=== PATIENT | male | born 1980 | race Caucasian/White ===

== ENCOUNTER 2019-01-27 19:42 | Emergency (ER) | payer OTHER ==
[2019-01-27] MEDS ORDERED: Ondansetron 4 MG/2 ML SDV IVPUSH ONE (20:22)
[2019-01-27] MEDS ORDERED: Ketorolac 30 MG/ML SDV IVPUSH ONE (20:22)
[2019-01-27] MEDS ORDERED: Sodium Chloride 0.9% 1,000 ML IV ONE (20:22)
--- NOTE | 2019-01-27 20:23 | EDM.PDOC ---
ED HPI GENERAL MEDICAL PROBLEM - General Chief Complaint: Abdominal Pain Stated Complaint: BACK PAIN Time Seen by Provider: 01/27/19 20:23 Source of Information: Reports: Patient - History of Present Illness INITIAL COMMENTS - FREE TEXT/NARRATIVE: HISTORY AND PHYSICAL: History of present illness: [Patient presents with mild. 10 low back pain persistent over the last 3 weeks nonradiating no footdrop saddle anesthesia or bowel or urine symptoms, begin of her left after lifting heavy object at work. He is able to bend and touch his toes and moves freely on and off the exam table Secondary complaint of abdominal pain is also mild 3-5 out of 10 on his pain scale no fever nausea vomiting chills sweats states that he has bloated sensation in the mornings on awakening has mild diffuse tenderness on exam no guarding or rebound] Review of systems: As per history of present illness and below otherwise all systems reviewed and negative. Past medical history: As per history of present illness and as reviewed below otherwise noncontributory. Surgical history: As per history of present illness and as reviewed below otherwise noncontributory. Social history: No reported history of drug or alcohol abuse. Family history: As per history of present illness and as reviewed below otherwise noncontributory. Physical exam: HEENT: Atraumatic, normocephalic, pupils reactive, negative for conjunctival pallor or scleral icterus, mucous membranes moist, throat clear, neck supple, nontender, trachea midline. Lungs: Clear to auscultation, breath sounds equal bilaterally, chest nontender. Heart: S1S2, regular, negative for clicks, rubs, or JVD. Abdomen: Soft, nondistended, mild tenderness on deep palpation diffusely. Negative for masses or hepatosplenomegaly. Negative for costovertebral tenderness. Pelvis: Stable nontender. Genitourinary: Deferred. Rectal: Deferred. Extremities: Atraumatic, negative for cords or calf pain. Neurovascular unremarkable. Neuro: Awake, alert, oriented. Cranial nerves II through XII unremarkable. Cerebellum unremarkable. Motor and sensory unremarkable throughout. Exam nonfocal. Diagnostics: [CBC CMP UA lipase CT abdomen pelvis no contrast] Therapeutics: [Cipro 500 by mouth twice a day #20 no refill Rest ice ibuprofen] Impression: [Abdominal pain, mesenteric adenitis] Lumbar paraspinous muscle spasm Definitive disposition and diagnosis as appropriate pending reevaluation and review of above. abdomen/lower back Pain Score (Numeric/FACES): 8 - Related Data Allergies Allergy/AdvReac Type Severity Reaction Status Date / Time No Known Allergies Allergy Verified 01/27/19 20:13 Home Meds: Home Meds . [No Known Home Meds] 01/27/19 [History] Past Medical History HEENT History: Reports: None Cardiovascular History: Reports: None Respiratory History: Reports: None Gastrointestinal History: Reports: Hemorrhoids Musculoskeletal History: Reports: None Neurological History: Reports: None Psychiatric History: Reports: None Endocrine/Metabolic History: Reports: None Hematologic History: Reports: None Immunologic History: Reports: None Oncologic (Cancer) History: Reports: None Dermatologic History: Reports: None - Infectious Disease History Infectious Disease History: Reports: None - Past Surgical History Head Surgeries/Procedures: Reports: None Other GI Surgeries/Procedures: hemorrhoidectomy Musculoskeletal Surgical History: Reports: Other (See Below) Other Musculoskeletal Surgeries/Procedures:: ACL repair. 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 Social & Family History - Family History Family Medical History: Noncontributory - Tobacco Use Smoking Status *Q: Current Every Day Smoker Years of Tobacco use: 18 Packs/Tins Daily: 0.5 - Caffeine Use Caffeine Use: Reports: Soda - Recreational Drug Use Recreational Drug Use: No ED ROS GENERAL - Review of Systems Review Of Systems: See Below ED EXAM, GENERAL - Physical Exam Exam: See Below Course - Vital Signs Last Recorded V/S: Last Vital Signs Temp 98 F 01/27/19 20:13 Pulse 86 01/27/19 20:13 Resp 18 01/27/19 20:13 BP 131/84 01/27/19 20:13 Pulse Ox 100 01/27/19 20:13 - Orders/Labs/Meds Labs: Laboratory Tests 01/27/19 01/27/19 01/27/19 Range/Units 20:26 20:32 20:32 WBC 10.10 (4.0-11.0) K/uL RBC 5.62 (4.50-5.90) M/uL Hgb 15.7 (13.0-17.0) g/dL Hct 47.0 (38.0-50.0) % MCV 83.6 (80.0-98.0) fL MCH 27.9 (27.0-32.0) pg MCHC 33.4 (31.0-37.0) g/dL RDW Std Deviation 44.4 (28.0-62.0) fl RDW Coeff of Anita 15 (11.0-15.0) % Plt Count 200 (150-400) K/uL MPV 11.50 (7.40-12.00) fL Neut % (Auto) 69.2 (48.0-80.0) % Lymph % (Auto) 21.7 (16.0-40.0) % Johnson % (Auto) 7.0 (0.0-15.0) % Eos % (Auto) 1.9 (0.0-7.0) % Baso % (Auto) 0.2 (0.0-1.5) % Neut # (Auto) 7.0 H (1.4-5.7) K/uL Lymph # (Auto) 2.2 (0.6-2.4) K/uL Johnson # (Auto) 0.7 (0.0-0.8) K/uL Eos # (Auto) 0.2 (0.0-0.7) K/uL Baso # (Auto) 0.0 (0.0-0.1) K/uL Nucleated RBC % 0.0 /100WBC Nucleated RBCs # 0 K/uL Sodium 141 (136-148) mmol/L Potassium 4.4 (3.5-5.1) mmol/L Chloride 105 (98-107) mmol/L Carbon Dioxide 26.0 (21.0-32.0) mmol/L BUN 22 H (7.0-18.0) mg/dL Creatinine 1.0 (0.8-1.3) mg/dL Est Cr Clr Drug Dosing 115.41 mL/min Estimated GFR (MDRD) > 60.0 ml/min Glucose 91 (74-106) mg/dL Calcium 8.5 (8.5-10.1) mg/dL Total Bilirubin 0.2 (0.2-1.0) mg/dL AST 13 L (15-37) IU/L ALT 27 (14-63) IU/L Alkaline Phosphatase 123 H (46-116) U/L Troponin I < 0.050 (0.000-0.056) ng/mL Total Protein 7.4 (6.4-8.2) g/dL Albumin 3.9 (3.4-5.0) g/dL Globulin 3.5 (2.6-4.0) g/dL Albumin/Globulin Ratio 1.1 (0.9-1.6) Lipase 99 (73-393) U/L Urine Color YELLOW Urine Appearance CLEAR Urine pH 6.0 (5.0-8.0) Ur Specific [place] 1.025 (1.001-1.035) Urine Protein NEGATIVE (NEGATIVE) mg/dL Urine Glucose (UA) NEGATIVE (NEGATIVE) mg/dL Urine Ketones NEGATIVE (NEGATIVE) mg/dL Urine Occult Blood NEGATIVE (NEGATIVE) Urine Nitrite NEGATIVE (NEGATIVE) Urine Bilirubin NEGATIVE (NEGATIVE) Urine Urobilinogen 0.2 (<2.0) EU/dL Ur Leukocyte Esterase NEGATIVE (NEGATIVE) Meds: Medications Discontinued Medications Generic Name Dose Route Start Last Admin Trade Name Freq PRN Reason Stop Dose Admin Sodium Chloride 1,000 mls @ 999 mls/hr 01/27/19 20:22 01/27/19 20:32 Normal Saline IV 01/27/19 21:22 999 mls/hr STAT ONE Administration Ketorolac Tromethamine 30 mg 01/27/19 20:22 01/27/19 20:32 Toradol IVPUSH 01/27/19 20:23 30 mg ONETIME ONE Administration Ondansetron HCl 8 mg 01/27/19 20:22 01/27/19 20:32 Zofran IVPUSH 01/27/19 20:23 8 mg ONETIME ONE Administration Departure - Departure Time of Disposition: 21:50 Disposition: Home, Self-Care 01 Condition: Good Clinical Impression: Abdominal pain, Low back pain - Discharge Information Referrals: PCP,None [Primary Care Provider] - Forms: ED Department Discharge Additional Instructions: The following information is given to patients seen in the emergency department who are being discharged to home. This information is to outline your options for follow-up care. We provide all patients seen in our emergency department with a follow-up referral. The need for follow-up, as well as the timing and circumstances, are variable depending upon the specifics of your emergency department visit. If you don't have a primary care physician on staff, we will provide you with a referral. We always advise you to contact your personal physician following an emergency department visit to inform them of the circumstance of the visit and for follow-up with them and/or the need for any referrals to a consulting specialist. The emergency department will also refer you to a specialist when appropriate. This referral assures that you have the opportunity for follow-up care with a specialist. All of these measure are taken in an effort to provide you with optimal care, which includes your follow-up. Under all circumstances we always encourage you to contact your private physician who remains a resource for coordinating your care. When calling for follow-up care, please make the office aware that this follow-up is from your recent emergency room visit. If for any reason you are refused follow-up, please contact the [facility] emergency department at and asked to speak to the emergency department charge nurse.
[2019-01-27 21:14] LABS: CHLORIDE,CL 105 mmol/L (98-107); SODIUM,NA 141 mmol/L (136-148)
--- NOTE | 2019-01-27 21:26 | CT ---
HISTORY: Low back and abdominal pain. TECHNIQUE: Noncontrast CT abdomen and pelvis. COMPARISON: No prior. FINDINGS: No focal liver parenchymal abnormality. Gallbladder is nondistended. Spleen and adrenal glands are normal. No focal pancreatic abnormality. Slight perinephric stranding. There is no hydronephrosis. No urinary calculus. Urinary bladder is nondistended. - No small bowel obstruction. No appendicitis. No diverticulitis. No fluid collection or free air. No abdominal aortic aneurysm. Small mesenteric lymph nodes are likely reactive. - No acute lumbar fracture. - No infiltrate within the lung bases nor pleural effusion. IMPRESSION: 1. Mild perinephric stranding bilaterally. No hydronephrosis or urinary calculus. 2. No bowel obstruction, appendicitis or diverticulitis. 3. No acute fractures. Dictated by Terell Harris MD @ 01/27/2019 9:23:37 PM Please note that all CT scans at this facility use dose modulation, iterative reconstruction, and/or weight-based dosing when appropriate to reduce radiation dose to as low as reasonably achievable. Dictated by: Terell Harris MD @ 01/27/2019 21:23:39 (Electronically Signed)
== END 2019-01-27 22:18 | disposition home or self-care (01) ==
LOC: MW.ED 19:42
DX: I88.0 Nonspecific mesenteric lymphadenitis (principal); M62.830 Muscle spasm of back; M54.5 Low back pain; F17.210 Nicotine dependence, cigarettes, uncomplicated
CPT/HCPCS: 36415; 74176; 80053; 81003; 83690; 84484; 85025; 96361; 96374; 96375; 99284; J1885; J2405; J7040